=== PATIENT | female | born 1995 | race American Indian/Alaskan Native ===

== ENCOUNTER 2020-10-18 13:46 | Emergency (ER) | payer SELFPAY ==
--- NOTE | 2020-10-18 14:16 | Emergency Department Report ---
ED General Adult HPI - General Stated complaint: TONGUE BAR STUCK IN THROAT Time Seen by Provider: 10/18/20 13:58 - History of Present Illness Initial comments: 25-year-old -[place] female complains of of throat pain x4 days. She reports she swallowed her tongue ring. Patient states she believes she is dysphagia, fever/chills/sweats, no abdominal pain or nausea/vomiting per patient. He denies any past medical history -: Sudden - Related Data Previous Rx's Medication Instructions Recorded Last Taken Type Ibuprofen [Motrin 800 MG tab] 800 mg PO Q8HR PRN #20 tablet 10/18/20 Unknown Rx Nystas/Diphen/Xyl Visc/Mylanta 30 ml MM Q6H PRN #120 ml 10/18/20 Unknown Rx [Magic Mouthwash] ED Review of Systems ROS: Stated complaint: TONGUE BAR STUCK IN THROAT Other details as noted in HPI ENT: throat pain. denies: dental pain Respiratory: denies: cough, shortness of breath Cardiovascular: denies: chest pain Gastrointestinal: denies: abdominal pain, nausea, vomiting Hematological/Lymphatic: denies: swollen glands ED Past Medical Hx - Medications Home Medications: Home Medications Medication Instructions Recorded Confirmed Last Taken Type Ibuprofen [Motrin 800 MG tab] 800 mg PO Q8HR PRN #20 tablet 10/18/20 Unknown Rx Nystas/Diphen/Xyl Visc/Mylanta 30 ml MM Q6H PRN #120 ml 10/18/20 Unknown Rx [Magic Mouthwash] ED Physical Exam - General General appearance: alert, in no apparent distress - Head Head exam: Present: atraumatic, normocephalic - Eye Eye exam: Absent: scleral icterus - ENT ENT exam: Present: normal exam, normal orophraynx - Neck Neck exam: Present: normal inspection, full ROM. Absent: tenderness, lymphadenopathy - Respiratory Respiratory exam: Present: normal lung sounds bilaterally. Absent: respiratory distress - Cardiovascular Cardiovascular Exam: Present: regular rate, normal rhythm - Neurological Exam Neurological exam: Present: alert, oriented X3 - Psychiatric Psychiatric exam: Present: normal affect, normal mood - Skin Skin exam: Present: warm, dry, intact, normal color. Absent: rash ED Medical Decision Making - Radiology Data Radiology results: report reviewed SOFT TISSUE NECK 2 VIEWS HISTORY: Possible ingested metal foreign body. Patient states she swallowed tongue ring are and fills lodged in distal neck COMPARISON: None. IMPRESSION: No radiopaque foreign body is detected in the neck soft tissues. The base of the tongue, epiglottis, vallecula, larynx and prevertebral soft tissues are unremarkable. Normal osseous structures. Signer Name: Darrian Machuca Jr, MD Signed: 10/18/2020 2:20 PM Workstation Name: [id number] - Medical Decision Making 25-year-old -[place] female complains of of throat pain x4 days. She reports she swallowed her tongue ring. Patient states she believes she is dysph agia, fever/chills/sweats, no abdominal pain or nausea/vomiting per patient. He denies any past medical history No significant tenderness of the throat or abnormalities noted on exam. X-rays negative for any foreign bodies. Recommend ibuprofen and Magic mouthwash as needed. Patient to follow-up with primary care in 3 to 5 days. Strict return precautions discussed in detail with patient who verbalizes understanding. Critical care attestation.: If time is entered above; I have spent that time in minutes in the direct care of this critically ill patient, excluding procedure time. ED Disposition Clinical Impression: Swallowed foreign body Disposition: DC-01 TO HOME OR SELFCARE Is pt being admited?: No Condition: Stable Instructions: Swallowed Foreign Body, Adult Prescriptions: Nystas/Diphen/Xyl Visc/Mylanta [Magic Mouthwash] 30 ml MM Q6H PRN #120 ml PRN Reason: Throat Pain Ibuprofen [Motrin 800 MG tab] 800 mg PO Q8HR PRN #20 tablet PRN Reason: pain Referrals: LEOLA CISNEROS MD [Staff Physician] - 3-5 Days
--- NOTE | 2020-10-18 14:24 | XRay Report ---
SOFT TISSUE NECK 2 VIEWS HISTORY: Possible ingested metal foreign body. Patient states she swallowed tongue ring are and fills lodged in distal neck COMPARISON: None. IMPRESSION: No radiopaque foreign body is detected in the neck soft tissues. The base of the tongue, epiglottis, vallecula, larynx and prevertebral soft tissues are unremarkable. Normal osseous structur es. Signer Name: Darrian Machuca Jr, MD Signed: 10/18/2020 2:20 PM Workstation Name: [id number]
[2020-10-18 15:53] VITALS: BP 136/84
== END 2020-10-18 15:25 | disposition home or self-care (01) ==
LOC: ED 13:46
DX: T18.9XXA Foreign body of alimentary tract, part unspecified, initial encounter (principal); Z79.899 Other long term (current) drug therapy; X58.XXXA Exposure to other specified factors, initial encounter; Y93.89 Activity, other specified; Y92.89 Other specified places as the place of occurrence of the external cause; Y99.8 Other external cause status
CPT/HCPCS: 70360; 99283